=== PATIENT | male | born 1985 | race Caucasian/White ===

== ENCOUNTER 2024-04-03 20:32 | Emergency (ER) | payer OTHER ==
[~2024-04-03] VITALS: Ht 188 cm; Wt 137.0 kg
[2024-04-03 21:06] VITALS: BP 157/102; TEMP 98.1; O2SAT 98
[2024-04-03] MEDS ORDERED: HYDR-3980 PO (21:17)
== END 2024-04-03 21:49 | disposition home or self-care (01) ==
LOC: ER 20:36
DX: M79.602 Pain in left arm (principal); M79.605 Pain in left leg; W01.0XXA Fall on same level from slipping, tripping and stumbling without subsequent striking against object, initial encounter; Y93.89 Activity, other specified; Y92.89 Other specified places as the place of occurrence of the external cause; Y99.8 Other external cause status

== ENCOUNTER 2024-09-06 02:01 | Emergency (ER) | payer OTHER ==
[~2024-09-06] VITALS: Ht 188 cm; Wt 138.3 kg
[~2024-09-06 02:01] MED LIST: HYDR-3980 PO
[2024-09-06] MEDS ORDERED: IBUPROFEN 400 MG TABLET ONE (02:41)
[2024-09-06] MEDS: IBUPROFEN 400 MG TABLET PO ONE (02:42)
[2024-09-06 03:20] VITALS: BP 132/80; TEMP 98.6; O2SAT 96
== END 2024-09-06 03:20 | disposition home or self-care (01) ==
LOC: ER 02:02
DX: M25.572 Pain in left ankle and joints of left foot (principal); E66.01 Morbid (severe) obesity due to excess calories; Z68.41 Body mass index [BMI] 40.0-44.9, adult; W22.01XA Walked into wall, initial encounter; Y93.89 Activity, other specified; Y92.89 Other specified places as the place of occurrence of the external cause; Y99.8 Other external cause status
CPT/HCPCS: 73590-TC; 73610-TC

== ENCOUNTER 2024-10-11 04:33 | Emergency (ER) | payer OTHER ==
[~2024-10-11] VITALS: Ht 185.4 cm; Wt 140.6 kg
[2024-10-11] MEDS ORDERED: FURO-144 PO (06:18)
[2024-10-11] MEDS ORDERED: CEPH-570 PO (06:18)
[2024-10-11 06:47] VITALS: BP 178/110; TEMP 98.2; O2SAT 100
== END 2024-10-11 06:48 | disposition home or self-care (01) ==
LOC: ER 04:42
DX: I87.2 Venous insufficiency (chronic) (peripheral) (principal); Z79.899 Other long term (current) drug therapy